=== PATIENT | male | born 1955 | race Hispanic/Latino ===

== ENCOUNTER 2018-01-01 06:03 | Day surgery (SDC) | payer OTHER, BC ==
--- NOTE | 2017-12-31 02:18 | HP ---
SHORT STAY HISTORY AND PHYSICAL DATE OF ADMISSION: 01/01/2018 HISTORY OF PRESENT ILLNESS: This is a 62-year-old with constipation, abdominal bloating, abdominal pain. The patient had a colonoscopy in 2016 which was negative. The patient was given Linzess 145 mcg once a day for his constipation. The patient had no response to Linzess. The patient does eat a high-fiber diet. The patient comes in for EGD because of abdominal pain . No nausea, no vomiting. ALLERGIES: ASPIRIN, PANTOPRAZOLE. MEDICAL ILLNESSES: 1. Chronic acid reflux. 2. Irritable bowel syndrome. 3. Chronic back pain with radiculopathy. 4. Chronic cough. 5. Cervical spondylosis. 6. Rheumatoid arthritis. 7. Constipation, chronic in nature. PHYSICAL EXAMINATION: VITAL SIGNS: Pulse is 70, blood pressure 130/80. HEENT: Conjunctivae clear. CARDIOVASCULAR SYSTEM: First and second heart sounds normal. LUNGS: Clear to auscultation. ABDOMEN: Soft. Abdomen is tender over the epigastric area. There is no rebound or guarding. ADMITTING DIAGNOSIS: Abdominal pain. PLAN: EGD. [facility]
[2017-12-31 11:44] VITALS: BMI 38.0
--- NOTE | 2018-01-01 08:18 | OP ---
DATE OF PROCEDURE: 01/01/2018 SURGEON: Nyla Melo M.D. OPERATIVE PROCEDURE: Esophagogastroduodenoscopy with biopsy. The exam was done to the third and fourth part of the duodenum. PREOPERATIVE DIAGNOSES: 1. Abdominal pain. 2. Chronic dyspepsia. POSTOPERATIVE DIAGNOSES: 1. Small hiatus hernia. 2. Mild esophagitis at the GE junction. 3. Antral gastritis. 4. Polyp in the third part of the duodenum, biopsied. PROCEDURE IN DETAIL: The patient was placed on his left lateral position and was given sedation by Anesthesia Department. A Pentax video gastroscope under direct vision was passed down the oropharynx, past the GE junction, into the stomach and subsequently into the descending duodenum. The exam was done up to the fourth part of duodenum. On the third part the patient had a polyp. The polyp measured approximately 1 cm. This was biopsied. . The duodenal bulb, no pathology seen. The gastric antrum shows edema and erythema in the mucosa. This was biopsied. He has small hiatus hernia. The fundus and cardia, no pathology seen. Over the distal esophagus, mild mucosal hyperemia and edema noted. The stomach was decompressed and the scope removed. DISCHARGE PLANNING: This is a 62-year-old male currently has history of upper abdominal pain. He underwent EGD. EGD showed a polyp in the descending duodenum, gastritis and hiatus hernia. DISCHARGE RECOMMENDATIONS: 1. Increase omeprazole to 40 mg once a day. 2. Await gastric biopsy and the duodenal biopsy and make further recommendations. MTDD
[2018-01-01] MEDS ORDERED: Lidocaine 1% PF 5 ML VIAL ONE (14:25)
[2018-01-01] MEDS ORDERED: PROPOFOL 200 MG/20 ML VIAL ONE (14:25)
== END 2018-01-01 08:15 | disposition home or self-care (01) ==
LOC: SDC 06:03
PROVIDERS: ATTEND Internal Medicine Gastroenterology
PROC: 0DB98ZX Excision of Duodenum, Via Natural or Artificial Opening Endoscopic, Diagnostic (ICD-10-PCS; principal; 2018-01-01)
DX: K31.7 Polyp of stomach and duodenum (principal); K20.9 Esophagitis, unspecified; K29.70 Gastritis, unspecified, without bleeding; K44.9 Diaphragmatic hernia without obstruction or gangrene; K21.9 Gastro-esophageal reflux disease without esophagitis; K58.1 Irritable bowel syndrome with constipation; M47.22 Other spondylosis with radiculopathy, cervical region; M06.9 Rheumatoid arthritis, unspecified; Z79.899 Other long term (current) drug therapy; Z88.5 Allergy status to narcotic agent; Z88.8 Allergy status to other drugs, medicaments and biological substances
CPT/HCPCS: 88305; 88312; 88341; 88342; J2001; J2704

== ENCOUNTER 2019-05-30 14:54 | Outpatient (CLI) | payer OTHER, BC ==
--- NOTE | 2019-05-30 15:55 | MRI ---
MR OF THE LEFT KNEE WITHOUT CONTRAST INDICATION: 64-year-old male with acute left knee pain TECHNIQUE: Axial and coronal PD fat sat, sagittal T2 fat sat, sagittal PD turbo spin echo and T1 alejandra nal images were obtained of the left knee. COMPARISON: Left knee radiograph dated May 04, 2019 FINDINGS: Joint effusion: None. Semimembranosus-medial gastrocnemius popliteal cyst: Tiny Maria's cyst Ligaments: The MCL, ACL, PCL and LCLC are intact. Extensor mechanism: Intact. Menisci: There is a horizontally oriented tear involving the body and posterior junction of the media l meniscus. There is some tear extension into the posterior horn of the medial meniscus. There is a horizontally oriented oblique component involving the superior articular surface of the medial menisc us body with a displaced meniscal flap projecting into the medial gutter measuring 6.5 mm. There is prominent intrasubstance degenerative signal of the lateral meniscus with central free edge fraying o f the body of the lateral meniscus. Articular cartilage: There is moderate chondrosis involving the medial patellar facet and median rodriguez llar ridge. There is diffuse moderate chondral thinning involving the femoral tibial compartments. There are small marginal osteophytes affecting the major compartments of the left knee. Osseous structures: There is susceptibility artifact from an intramedullary chicho involving the distal left femur. No acute fracture is demonstrated. Popliteus and IT band: Normal. IMPRESSION: 1. Mild osteoarthrosis of the left knee. 2. Medial meniscal tear.
== END 2019-05-30 14:55 | disposition home or self-care (01) ==
LOC: SCSMRI 14:54
PROVIDERS: ATTEND Orthopaedic Surgery
DX: M25.562 Pain in left knee (principal); M17.12 Unilateral primary osteoarthritis, left knee; S83.242A Other tear of medial meniscus, current injury, left knee, initial encounter

== ENCOUNTER 2021-10-02 07:33 | Outpatient (CLI) | payer BC | END 2021-10-02 07:34 | disposition home or self-care (01) | LOC: BICULT 07:33 | PROVIDERS: ATTEND Family Medicine | DX: R10.11 Right upper quadrant pain (principal) | CPT/HCPCS: 76705 ==

== ENCOUNTER 2021-11-19 09:10 | Outpatient (CLI) | payer BC | END 2021-11-19 09:11 | disposition home or self-care (01) | LOC: EKG 09:10 | PROVIDERS: ATTEND Family Medicine | DX: G45.9 Transient cerebral ischemic attack, unspecified (principal) | CPT/HCPCS: 93005; 93010 ==

== ENCOUNTER 2021-12-04 13:50 | Outpatient (CLI) | payer BC | END 2021-12-04 13:51 | disposition home or self-care (01) | LOC: ULT 13:50 | PROVIDERS: ATTEND Family Medicine | DX: G45.9 Transient cerebral ischemic attack, unspecified (principal); I34.0 Nonrheumatic mitral (valve) insufficiency | CPT/HCPCS: 93306 ==

== ENCOUNTER 2022-11-11 07:51 | Outpatient (CLI) | payer BC ==
[2022-11-11] MEDS ORDERED: Iopamidol 370 76% 100 ML VIAL ONE (09:17)
== END 2022-11-11 07:52 | disposition home or self-care (01) ==
LOC: CT 07:51
PROVIDERS: ATTEND Urology
DX: C61 Malignant neoplasm of prostate (principal)
CPT/HCPCS: 74178; 78306; 82565; A9503; Q9967

== ENCOUNTER 2023-03-17 08:00 | Outpatient (CLI) | payer BC ==
[2023-03-17 09:24] LABS: Bilirubin Neg (Negative); Blood, Urine 25 (Negative); Clarity Clear (Clear); Glucose, Urine (Dipstick) Normal (Negative); Ketone, Urine Negative (Negative); Leukocyte Negative (Negative); Nitrite Negative (Negative); Protein, Urine (Dipstick) 15 mg/dl (Neg-Trace); Urobilinogen Normal mg/dL (Less than 2)
[2023-03-17 09:28] LABS: Hematocrit 42.9 % (38.8-50.0); Hemoglobin 15.1 g/dL (13.5-17.5); Mean Corpuscular HGB CONC 35.2 g/dL (32.0-36.0); Mean Corpuscular Hemoglobin 31.5 pg (27.0-33.0); Mean Corpuscular Volume 89.6 fl (81.2-95.1); Mean Platelet Volume 10.1 fl (7.4-10.4); Platelet Count 286 10x3/uL (150-450); RBC Distribution Width 12.8 % (11.5-14.5); Red Blood Cell (RBC) Count 4.79 10x6/uL (4.32-5.72); White Blood Cell (WBC) Count 6.4 10x3/uL (3.5-10.5)
[2023-03-17 09:36] LABS: INR-International Normal Ratio 0.9; PTT 27.9 sec (22.0-33.0); Prothrombin Time 10.2 sec (9.5-12.1)
[2023-03-17 09:40] LABS: ALT (SGPT) 30 U/L (8-55); AST (SGOT) 27 U/L (5-34); Albumin 3.9 g/dL (3.4-4.8); Alkaline Phosphatase 85 U/L (40-110); Anion Gap 11 mmol/L (10-20); BUN (Urea Nitrogen) 17 mg/dL (8.4-25.7); Calc. Creatinine Clearance 0 mL/min (70-130); Calcium 9.1 mg/dL (7.8-10.44); Carbon Dioxide 26 mmol/L (23-31); Chloride 106 mmol/L (98-107); Estimated GFR 83; Globulin 2.9 g/dL (2.4-3.5); Glucose 86 mg/dL (80-115); Potassium 4.2 mmol/L (3.5-5.1); Protein, Total 6.8 g/dL (5.8-8.1); Sodium 139 mmol/L (136-145)
[2023-03-17 09:44] LABS: Bacteria/HPF None Seen HPF (None Seen); RBC/HPF 0-3 HPF (0-3); Squamous Epithelial 0-3 HPF (0-3); WBC/HPF None Seen HPF (0-3)
== END 2023-03-17 08:01 | disposition home or self-care (01) ==
LOC: LABBT 08:00
PROVIDERS: ATTEND Urology
DX: Z01.818 Encounter for other preprocedural examination (principal); C61 Malignant neoplasm of prostate; M54.50 Low back pain, unspecified; G89.29 Other chronic pain; N40.1 Benign prostatic hyperplasia with lower urinary tract symptoms; N47.1 Phimosis; G45.9 Transient cerebral ischemic attack, unspecified; E66.9 Obesity, unspecified; R30.0 Dysuria; R35.1 Nocturia; R97.20 Elevated prostate specific antigen [PSA]; Z80.42 Family history of malignant neoplasm of prostate; Z87.440 Personal history of urinary (tract) infections
CPT/HCPCS: 71046; 80053; 81001; 85027; 85610; 85730; 86850; 86900; 86901; 87086; 93005; 93010

== ENCOUNTER 2023-03-17 08:30 | Inpatient (IN) | payer BC, MEDICARE ==
[2023-03-17 08:58] VITALS: BMI 36.9
[2023-03-30] MEDS ORDERED: ceFOXitin 1 GM VIAL ONE (06:24)
[2023-03-30] MEDS ORDERED: Sodium Chloride 0.9% 0 ML ONE (06:26)
== END 2023-03-30 07:20 | disposition home or self-care (01) | DRG 724 ==
LOC: SURG A 03-30 05:56 → EDSTATUS 03-30 08:30
PROVIDERS: ADMIT Urology; ATTEND Urology
DX: C61 Malignant neoplasm of prostate (principal); Z53.8 Procedure and treatment not carried out for other reasons; N40.0 Benign prostatic hyperplasia without lower urinary tract symptoms; G89.29 Other chronic pain; K21.9 Gastro-esophageal reflux disease without esophagitis; E66.9 Obesity, unspecified; Z91.013 Allergy to seafood; Z91.09 Other allergy status, other than to drugs and biological substances; Z98.890 Other specified postprocedural states; Z68.36 Body mass index [BMI] 36.0-36.9, adult
CPT/HCPCS: 86850; 86900; 86901; J0694; J3490

== ENCOUNTER 2023-04-27 07:13 | Outpatient (CLI) | payer BC ==
[2023-04-27] MEDS ORDERED: Iopamidol-370 76% 500 ML BOT (X-RAY USE) FS ONE (07:38)
== END 2023-04-27 07:14 | disposition home or self-care (01) ==
LOC: RAD 07:13
PROVIDERS: ATTEND Urology
DX: C61 Malignant neoplasm of prostate (principal); Z90.79 Acquired absence of other genital organ(s)
CPT/HCPCS: 51600; 74430; Q9967

== ENCOUNTER 2023-05-04 21:18 | Emergency (ER) | payer BC ==
[2023-05-04 22:11] LABS: #Eosinphils 0.2 thou/uL (0.0-0.7); #Monocytes 0.6 thou/uL (0.11-0.59); #Neutrophils 4.5 thou/uL (1.40-6.50); %Basophils 0.3 % (0.0-1.0); %Eosinophils 2.8 % (0.0-10.0); %Lymphocytes 21.8 % (21.0-51.0); %Monocytes 8.6 % (0.0-10.0); %Neutrophils 66.4 % (42.0-75.0); Hematocrit 41.7 % (42.0-52.0); Hemoglobin 14.3 g/dL (14.0-18.0); Mean Corpuscular HGB CONC 34.3 g/dL (32.0-36.0); Mean Corpuscular Hemoglobin 31.1 pg (27.0-31.0); Mean Corpuscular Volume 90.7 fl (78.0-98.0); Mean Platelet Volume 9.6 fL (7.4-10.4); Platelet Count 416 10x3/uL (130-400); RBC Distribution Width 12.6 % (11.5-14.5); White Blood Cell (WBC) Count 6.8 10x3/uL (4.8-10.8)
[2023-05-04 22:27] LABS: ALT (SGPT) 26 U/L (8-55); AST (SGOT) 26 U/L (5-34); Alkaline Phosphatase 108 U/L (40-110); Anion Gap 10 mmol/L (10-20); BUN (Urea Nitrogen) 14 mg/dL (8.4-25.7); Bilirubin, Total 0.5 mg/dL (0.2-1.2); Calc. Creatinine Clearance 0 mL/min (70-130); Calcium 9.5 mg/dL (7.8-10.44); Carbon Dioxide 27 mmol/L (23-31); Chloride 103 mmol/L (98-107); Estimated GFR 95; Globulin 3.8 g/dL (2.4-3.5); Glucose 104 mg/dL (80-115); Potassium 3.8 mmol/L (3.5-5.1); Protein, Total 7.8 g/dL (5.8-8.1); Sodium 136 mmol/L (136-145)
[2023-05-05 00:08] LABS: CAUTI Indications for Culture Dysuria,urgency,freq
[2023-05-05 00:26] LABS: Bilirubin Negative (Negative); Blood, Urine 3+ (Negative); Clarity Clear (Clear); Glucose, Urine (Dipstick) Normal (Negative); Ketone, Urine Negative (Negative); Leukocyte 25 Leu/uL (Negative); Nitrite Negative (Negative); Protein, Urine (Dipstick) Negative (Neg-Trace); Specific Gravity, Urine 1.009 (1.002-1.036); Squamous Epithelial None Seen HPF (0-3); Urobilinogen Normal mg/dL (Less than 2); pH, Urine 6.5 (5.0-9.0)
[2023-05-05] MEDS ORDERED: HYDROcodone/Acetaminophen 5/325 mg Tablet ONE (01:15)
[2023-05-05] MEDS ORDERED: Ketorolac Tromethamine 10 MG TAB PO SCH (01:30)
== END 2023-05-05 01:40 | disposition home or self-care (01) ==
LOC: ERS 21:18
DX: N02.9 Recurrent and persistent hematuria with unspecified morphologic changes (principal); I48.91 Unspecified atrial fibrillation
CPT/HCPCS: 36415; 80053; 81001; 85025; 87086; 99283

== ENCOUNTER 2023-05-07 07:05 | Outpatient (CLI) | payer BC, MEDICARE ==
[2023-05-07] MEDS ORDERED: Iopamidol 370 76% 100 ML VIAL ONE (13:24)
== END 2023-05-07 07:06 | disposition home or self-care (01) ==
LOC: CT 07:05
PROVIDERS: ATTEND Urology
DX: C61 Malignant neoplasm of prostate (principal); G89.29 Other chronic pain; K44.9 Diaphragmatic hernia without obstruction or gangrene; Z98.890 Other specified postprocedural states
CPT/HCPCS: 74178; Q9967

== ENCOUNTER 2024-10-12 15:35 | Emergency (ER) | payer BC ==
[2024-10-12 16:11] LABS: #Basophils 0.03 10x3/uL (0.0-0.2); #Eosinophils 0.15 10x3/uL (0.0-0.7); #Monocytes 0.47 10x3/uL (0.11-0.59); #Neutrophils 3.01 10x3/uL (1.40-6.50); %Basophils 0.6 % (0.0-1.0); %Eosinophils 2.9 % (0.0-10.0); %Lymphocytes 28.0 % (21.0-51.0); %Monocytes 9.2 % (0.0-10.0); %Neutrophils 58.9 % (42.0-75.0); Hematocrit 39.1 % (42.0-52.0); Hemoglobin 13.5 g/dL (14.0-18.0); Mean Corpuscular Hemoglobin 30.5 pg (27.0-31.0); Mean Corpuscular Volume 88.3 fL (78.0-98.0); Platelet Count 235 10x3/uL (130-400); Red Blood Cell (RBC) Count 4.43 mill/uL (4.70-6.10); White Blood Cell (WBC) Count 5.11 10x3/uL (4.8-10.8)
[2024-10-12 16:29] LABS: ALT (SGPT) 14 U/L (Less than 45); AST (SGOT) 18 U/L (11-34); Albumin 3.5 g/dL (3.1-4.5); Alkaline Phosphatase 81 U/L (40-110); Anion Gap 10 mmol/L (10-20); BUN (Urea Nitrogen) 13 mg/dL (8.4-25.7); Bilirubin, Total 0.6 mg/dL (0.3-1.2); Calc. Creatinine Clearance 0 mL/min (70-130); Calcium 8.2 mg/dL (7.8-10.44); Carbon Dioxide 21 mmol/L (23-31); Chloride 107 mmol/L (98-107); Globulin 3.1 g/dL (2.4-3.5); Glucose 84 mg/dL (80-115); Potassium 3.8 mmol/L (3.5-5.1); Sodium 134 mmol/L (136-145)
[2024-10-12 16:42] LABS: Troponin I Less than 0.010 ng/mL (< 0.028)
== END 2024-10-12 19:50 | disposition home or self-care (01) ==
LOC: ERS 15:35
DX: R07.9 Chest pain, unspecified (principal); K21.9 Gastro-esophageal reflux disease without esophagitis; E78.5 Hyperlipidemia, unspecified; Z86.73 Personal history of transient ischemic attack (TIA), and cerebral infarction without residual deficits; Z79.899 Other long term (current) drug therapy
CPT/HCPCS: 36415; 70450; 71045; 80053; 84484; 85025; 93005